=== PATIENT | male | born 1985 | race Asian ===

== ENCOUNTER 2017-11-17 20:15 | Emergency (ER) | payer SELFPAY ==
[~2017-11-17] VITALS: Ht 177.8 cm; Wt 72.6 kg
--- NOTE | 2017-11-17 21:08 | Emergency Room Report ---
History of Present Illness General Chief Complaint: Alcohol Intoxication Source: Medical Record Present Illness HPI This is a 32-year-old male who was brought in for alcohol intoxication. He is homeless. No other history can be obtained from the patient. It appeared that he's been to several hospitals for the same thing. He has multiple IV gabriel it on his arms and tape gabriel. Unable to get any further history because of his intoxication. Allergies: Coded Allergies: UNABLE TO ASSESS (Unverified , 11/17/17) Patient History Past Medical History: see triage record, old chart reviewed, unable to obtain Past Surgical History: unable to obtain Pertinent Family History: unable to obtain Social History: Reports: alcohol use Immunizations: other Reviewed Nursing Documentation: PMH: Agreed; PSxH: Agreed Nursing Documentation-PMH Past Medical History: Deferred Review of Systems All Other Systems: limited - secondary to intoxication Physical Exam Vital Signs Date Time Temp Pulse Resp B/P (MAP) Pulse Ox O2 Delivery O2 Flow Rate FiO2 11/17/17 19:43 98.1 98 18 117/76 98 Room Air 98.1 vitals normal Sp02 EP Interpretation: reviewed, normal General Appearance: well appearing, no apparent distress, other - disheveled. Very intoxicated Head: normocephalic, atraumatic Eyes: bilateral eye PERRL, bilateral eye EOMI ENT: normal pharynx Neck: full range of motion, supple, no meningismus Respiratory: chest non-tender, lungs clear, normal breath sounds Cardiovascular #1: regular rate, rhythm, no murmur Gastrointestinal: normal bowel sounds, non tender, no mass, no organomegaly, no bruit, non-distended Musculoskeletal: back normal, normal range of motion Neurologic: grossly normal - withdraw to painful stimuli in all 4 extremities Psychiatric: other - sleeping Skin: warm/dry Medical Decision Making Diagnostic Impression: Primary Impression: Acute alcoholic intoxication Qualified Codes: F10.929 - Alcohol use, unspecified with intoxication, unspecified ER Course Patient present with acute alcohol intoxication. He slept for several hours and woke up and said he wanted to leave. He refuse to give his name. He was laughing when asked his name and he said he was Papa Venkata's. He did admit to being [place]. He's walking without difficulty. We'll discharge home. He left without paperwork's. Last Vital Signs Date Time Temp Pulse Resp B/P (MAP) Pulse Ox O2 Delivery O2 Flow Rate FiO2 11/17/17 19:43 98.1 98 18 117/76 98 Room Air 98.1 Status: improved Disposition: HOME, SELF-CARE Condition: Stable Patient Instructions: Alcohol Intoxication, [id number] LATRICE RAM M.D. November 17, 2017 21:08
[2017-11-17 23:11] VITALS: BP 117/76
== END 2017-11-18 00:07 | disposition home or self-care (01) ==
LOC: EMR 20:28
DX: F10.929 Alcohol use, unspecified with intoxication, unspecified (principal); Z59.0 Homelessness
CPT/HCPCS: 99283